=== PATIENT | male | born 1985 | race Caucasian/White ===

== ENCOUNTER 2016-05-27 17:46 | Emergency (ER) | payer OTHER ==
[2016-05-27] MEDS ORDERED: Bupivacaine 0.5% 10 ML VIAL ONE (17:56)
[2016-05-27] MEDS ORDERED: Adacel (T-DAP) 0.5 ML VIAL ONE (18:01)
[2016-05-27] MEDS ORDERED: Triple Antibiotic Oint 1 GM Packet ONE (18:52)
[2016-05-27] MEDS ORDERED: Cephalexin 250 MG CAP ONE (19:15)
--- NOTE | 2016-05-27 19:29 | ERRECORD ---
[facility] EMERGENCY RECORD PAST MEDICAL HISTORY (17:59 KMOR) MEDICAL HISTORY: No past medical history, Tetanus not up to date, No past medical history of hypertension. MALE SURGICAL HISTORY: Patient has no surgical history. PSYCHIATRIC HISTORY: No previous psychiatric history. SOCIAL HISTORY: Patient denies alcohol use, Patient denies drug use, Patient has no smoking history. KNOWN ALLERGIES No Known Drug Allergies CURRENT MEDICATIONS (17:55 KMOR) None VITAL SIGNS VITAL SIGNS: BP: 120/84, Pulse: 84, Resp: 18, Temp: 98.3 (Oral), Pain: 10, O2 sat: 100 on Room Air, Time: 05/27/2016 17:58. (17:58 KMOR) BP: 103/63, Pulse: 78, Resp: 18, Temp: 98.3 (Oral), Pain: 2, O2 sat: 99 on Room Air, Time: 05/27/2016 18:47. (18:47 AHOO) MEDICATION ADMINISTRATION SUMMARY Drug Name: cephALEXin, Dose Ordered: 1000 mg, Route: Oral, Status: Given, Time: 19:16 05/27/2016, Drug Name: Adacel(Tdap Adolesn/Adult)(PF), Dose Ordered: 0.5 mL, Route: Intramuscular, Status: Given, Time: 18:07 05/27/2016, Drug Name: Marcaine, Dose Ordered: 5 mL, Route: Subcutaneous, Status: Given, Time: 18:00 05/27/2016, Detailed record available in Medication Service section. PROBLEM LIST No recorded problems DIAGNOSIS (19:18 JPIP) FINAL: PRIMARY: finger laceration, ADDITIONAL: finger contusions. PRESCRIPTION (19:13 JPIP) cephALEXin: CAPSULE (HARD, SOFT, ETC.) : 500 mg : ORAL : Quantity: 1 Unit: tab(s) Route: ORAL Schedule: 3 times a day (after meals) Dispense: 30 May substitute. Refills: No Refills . NOTES: No refills. Ultram: TABLET : 50 mg : ORAL : Quantity: 1-2 Unit: tab(s) Route: ORAL Schedule: every 8 hours PRN Dispense: 30 May substitute. Refills: No Refills . NOTES: for pain No refills. DISPOSITION &a-1R&a+25V*p+0X*o7364V*c202B*c15G*c2P*p-0X&a-25V&a+1R Name: Ab Campa : 1985 M30 MedRec: [id number] AcctNum: [id number] Prepared: ThuMay 27, 2016 19:26 by Interface Page 1 of 2 pMD [facility] EMERGENCY RECORD PATIENT: Disposition Type: Discharge, Disposition: *Discharge Home, Condition: Good. (19:18 JPIP) Patient left the department. (19:23 OO) Roach: AHOO=JOSEMANUEL Ferreira, July JPIP=DO Bowens Joseph KMOR=HAILEY Case, Emily &a-1R&a+25V*p+0X*m4063Q*c202B*c15G*c2P*p-0X&a-25V&a+1R Name: Ab Campa Malcolm : 1985 M30 MedRec: [id number] AcctNum: [id number] Prepared: ThuMay 27, 2016 19:26 by Interface Page 2 of 2 pMD MTDD
--- NOTE | 2016-05-27 19:39 | PICIS ---
[facility] EMERGENCY RECORD TRIAGE (17:54 KMOR) TRIAGE NOTES: Crushed 3rd digit with pipe at work at 1700. (17:54 KMOR) PATIENT: NAME: Ab Campa, AGE: 30, GENDER: male, : Thu1985, TIME OF GREET: ThuMay 27, 2016 17:46, PREFERRED LANGUAGE: Welsh, ETHNICITY: Not or , ECODE BILLING MAP: [facility], SSN: [id number], Zip Code: [address], KG WEIGHT: 68.04, PHONE: , , , PERSON ID: [id number], PCP: NONE. (17:54 KMOR) PAYMENT: [employer] Work[employer]. (18:04) COMPLAINT: finger injury. (17:54 KMOR) ADMISSION: URGENCY: 3 Urgent, ADMISSION SOURCE: Home, TRANSPORT: CAR, BED: ER -03. (17:54 KMOR) ASSESSMENT: Assessment: A&OX4. RR EVEN AND UNLABORED., Symptoms began 1 hour ago. (17:59 KMOR) PAIN: Patient complains of pain described as, aching, on a scale 0-10 patient rates pain as 10, Location RIGHT MIDDLE DIGIT. (17:59 KMOR) SIRS SCORING: Heart Rate 55-109 (0), Temp range 96.8-101.1 (0), respiratory rate 12-24 (0), Mental Status altered: no (0), Infection or Suspected Infection: No. (17:59 KMOR) TRIAGE SCREENING: Patient denies suicidal ideation, Patient denies presence of domestic violence. (17:59 KMOR) PROVIDERS: TRIAGE NURSE: Emily Case RN. (17:54 KMOR) VITAL SIGNS: BP 120/84, Pulse 84, Resp 18, Temp 98.3, (Oral), Pain 10, O2 Sat 100, on Room Air, Time 05/27/2016 17:58. (17:58 KMOR) KNOWN ALLERGIES No Known Drug Allergies CURRENT MEDICATIONS (17:55 KMOR) None VITAL SIGNS VITAL SIGNS: BP: 120/84, Pulse: 84, Resp: 18, Temp: 98.3 (Oral), Pain: 10, O2 sat: 100 on Room Air, Time: 05/27/2016 17:58. (17:58 KMOR) BP: 103/63, Pulse: 78, Resp: 18, Temp: 98.3 (Oral), Pain: 2, O2 sat: 99 on Room Air, Time: 05/27/2016 18:47. (18:47 AHOO) NURSING ASSESSMENT: SKIN (18:02 KMOR) CONSTITUTIONAL: Patient arrives ambulatory, Gait steady, History obtained from patient, Patient appears, uncomfortable, Patient cooperative, Patient alert, Oriented to person, place and time, Skin warm, Skin dry, Skin normal in color, Mucous membranes pink, Mucous membranes moist, Patient is well-groomed, Patient complains of Right hand injury, Right hand injury while at work, crush injury to right 3rd digit from pipe. PAIN: aching pain, right 3rd digit, on a scale 0-10 patient rates pain as 10. SKIN: Skin assessment findings include skin warm, Skin dry, Skin &a-1R&a+25V*p+0X*o3132Z*c202B*c15G*c2P*p-0X&a-25V&a+1R Name: Ab Campa : 1985 M30 MedRec: [id number] AcctNum: [id number] Prepared: ThuMay 27, 2016 19:34 by Interface Page 1 of 5 pMD [facility] EMERGENCY RECORD normal in color, Inspection findings include laceration, to plamer surfect of right 3rd digit, length (cm) 4, bleeding controlled. NOTES: Patient tolerated procedure well. NURSING PROCEDURE: DISCHARGE NOTE (19:18 AHOO) DISCHARGE: Patient discharged to home, ambulating without assistance, family driving, accompanied by //partner, Summary of Care printed/ provided, Transition record given to patient, Discharge instructions given to patient, Prescriptions given and instructions on side effects given, Above person(s) verbalized understanding of discharge instructions and follow-up care, Patient treated and evaluated by physician. NURSING PROCEDURE: TRANSPORT TO TESTS PATIENT IDENTIFIER: Patient actively involved in identification process, Patient's identity verified by patient stating name, Patient's identity verified by patient stating date, Patient's identity verified by hospital ID bracelet, Patient's identity verified by family member. (18:08 AHOO) TRANSPORT TO TESTS: Patient transported to x-ray, ambulatory, Accompanied by x-ray pathological technician. (18:08 AHOO) FOLLOW-UP: After procedure, patient returned to emergency department. (18:13 AHOO) NURSING PROCEDURE: WOUND CARE (18:20 AHOO) PATIENT IDENTIFIER: Patient actively involved in identification process, Patient's identity verified by patient stating name, Patient's identity verified by patient stating date, Patient's identity verified by hospital ID braneha, Patient's identity verified by family member. WOUND CARE: Wound care indicated for wound debridement and cleansing, Wound care indicated for preparing wound for repair, Wound care indicated to promote healing, Wound site: RIGHT HAND MIDDLE FINGER, Cause of wound: FINGER LACERATION, Wound irrigated with 250 mL of normal saline, by JULY HERLINDA BREAKFAST HOSTESS, Wound cleansed with Hibiclens, by JULY HERLINDA GONZALEZN, Wound repaired with sutures, by DR BOWENS, using 1 pack of suture. ORDER DETAILS Order Name: CLEAN WOUND, Status: Done, Time: 18:09 05/27/2016, User: KYLEE, - Ordered for: DO Bowens Joseph, - Entered by: DO Bowens Joseph - ThuMay 27, 2016 18:02, - Quantity: 1, Order Name: PROCEDURE SET-UP, Status: Done, Time: 18:12 05/27/2016, User: KYLEE, - Ordered for: DO Bowens Joseph, - Entered by: DO Bowens Joseph - ThuMay 27, 2016 18:11, &a-1R&a+25V*p+0X*t5358J*c202B*c15G*c2P*p-0X&a-25V&a+1R Name: Ab Campa : 1985 M30 MedRec: [id number] AcctNum: [id number] Prepared: ThuMay 27, 2016 19:34 by Interface [address] [place] [address] EMERGENCY RECORD - Quantity: 1, Order Name: WOUND CARE ED, Status: Done, Time: 18:09 05/27/2016, User: KYLEE, - Ordered for: DO Bowens Joseph, - Entered by: DO Bowens Joseph - Tue May 27, 2016 18:02, - Quantity: 1, Order Name: XR Finger(s) Rt Min 2 View, Status: Active, Time: 18:02 05/27/2016, User: LANDRY, - Ordered for: DO Bowens Joseph, - Entered by: DO Bowens Joseph - Tue May 27, 2016 18:02, - Quantity: 1. MEDICATION ADMINISTRATION SUMMARY Drug Name: cephALEXin, Dose Ordered: 1000 mg, Route: Oral, Status: Given, Time: 19:16 05/27/2016, Drug Name: Adacel(Tdap Adolesn/Adult)(PF), Dose Ordered: 0.5 mL, Route: Intramuscular, Status: Given, Time: 18:07 05/27/2016, Drug Name: Marcaine, Dose Ordered: 5 mL, Route: Subcutaneous, Status: Given, Time: 18:00 05/27/2016, Detailed record available in Medication Service section. MEDICATION SERVICE Adacel(Tdap Adolesn/Adult)(PF): Order: Adacel(Tdap Adolesn/Adult)(PF) (diphth,pertuss(acell),tet vac/preservative free) - Dose: 0.5 mL : Intramuscular Schedule: Now Ordered by: Duane Bowens DO Entered by: Duane Bowens DO ThuMay 27, 2016 17:57 , Acknowledged by: Kianna Ferreira LVN milo May 27, 2016 17:59, Acknowledged by: Kianna Ferreira LVN milo May 27, 2016 17:59 Documented as given by: JOSEMANUEL Helton May 27, 2016 18:07 Patient, Medication, Dose, Route and Time verified prior to administration. IM immunization, Amount given: 0.5ml, Medication administered to left deltoid, Vaccination information sheet given to patient, name of publication: [facility], lot number: [id number], expiration: 07/04/2018, Correct patient, time, route, dose and medication confirmed prior to administration, Patient advised of actions and side-effects prior to administration, Allergies confirmed and medications reviewed prior to administration, Patient in position of comfort, Side rails up, Cart in lowest position, Family at bedside. cephALEXin: Order: cephALEXin (cephalexin monohydrate) - Dose: 1000 mg : Oral Schedule: Now Ordered by: Duane Bowens DO Entered by: Duane Bowens DO ThuMay 27, 2016 19:13 , Acknowledged by: Kianna Ferreira LVN milo May 27, 2016 19:14 Documented as given by: Kianna Ferreira LVN ThuMay 27, 2016 19:16 Patient, Medication, Dose, Route and Time verified prior to &a-1R&a+25V*p+0X*j0438K*c202B*c15G*c2P*p-0X&a-25V&a+1R Name: Ab Campa : 1985 M30 MedRec: [id number] AcctNum: [id number] Prepared: ThuMay 27, 2016 19:34 by Interface Page 3 of 5 pMD [facility] EMERGENCY RECORD administration. Amount given: 1000mg, Correct patient, time, route, dose and medication confirmed prior to administration, Patient advised of actions and side-effects prior to administration, Allergies confirmed and medications reviewed prior to administration, Patient in position of comfort, Side rails up, Cart in lowest position, Family at bedside. Marcaine: Order: Marcaine (bupivacaine HCl) - Dose: 5 mL : Subcutaneous Schedule: Now Ordered by: Duane Bowens DO Entered by: Duane Bowens DO ThuMay 27, 2016 17:58 , Acknowledged by: Kianna Ferreira LVN ThuMay 27, 2016 17:59 Documented as given by: Kianna Ferreira LVN ThuMay 27, 2016 18:00 Patient, Medication, Dose, Route and Time verified prior to administration. Administered by admin by Dr Bowens. PAST MEDICAL HISTORY (17:59 KMOR) MEDICAL HISTORY: No past medical history, Tetanus not up to date, No past medical history of hypertension. MALE SURGICAL HISTORY: Patient has no surgical history. PSYCHIATRIC HISTORY: No previous psychiatric history. SOCIAL HISTORY: Patient denies alcohol use, Patient denies drug use, Patient has no smoking history. EVENTS TRANSFER: Triage to Emergency Emergency Room -03. (ThuMay 27, 2016 17:54 KMOR) Removed from Emergency Emergency Room -03. (19:23 AHOO) O2SAT INTERPRETATION (18:03 JP) O2SAT: Single pulse oximetry, Oxygen saturation 100%, on room air, Oxygen saturation interpretation: Normal, No intervention required. PROBLEM LIST No recorded problems DIAGNOSIS (19:18 JPIP) FINAL: PRIMARY: finger laceration, ADDITIONAL: finger contusions. DISPOSITION PATIENT: Disposition Type: Discharge, Disposition: *Discharge Home, Condition: Good. (19:18 JPIP) Patient left the department. (19:23 AHOO) INSTRUCTION (19:14 JPIP) DISCHARGE: FINGER LACERATION, FINGER CONTUSION. &a-1R&a+25V*p+0X*o3144O*c202B*c15G*c2P*p-0X&a-25V&a+1R Name: Ab Campa : 1985 M30 MedRec: [id number] AcctNum: [id number] Prepared: ThuMay 27, 2016 19:34 by Interface Page 4 of 5 pMD [facility] EMERGENCY RECORD SPECIAL: suture removal in 10 days Finish all your antibiotics Follow up with Primary Care Physician within 72 hours Return to the Emergency Department for increased symptoms problems or concerns Take acetaminophen or ibuprofen for pain. PRESCRIPTION (19:13 JPIP) cephALEXin: CAPSULE (HARD, SOFT, ETC.) : 500 mg : ORAL : Quantity: 1 Unit: tab(s) Route: ORAL Schedule: 3 times a day (after meals) Dispense: 30 May substitute. Refills: No Refills . NOTES: No refills. Ultram: TABLET : 50 mg : ORAL : Quantity: 1-2 Unit: tab(s) Route: ORAL Schedule: every 8 hours PRN Dispense: 30 May substitute. Refills: No Refills . NOTES: for pain No refills. IMAGING TETANUS CONSENT: Image captured from scanner. (18:06 OO) *DISCHARGE INSTRUCTIONS RECEIPT: Image captured from scanner. (19:21 OO) *SUPPLY CHARGE SHEET: Image captured from scanner. (19:21 OO) Roach: AHOO=JOSEMANUEL Ferreira, July JPIP=DO Bowens Joseph KMOR=HAILEY Case, Emily &a-1R&a+25V*p+0X*s9296L*c202B*c15G*c2P*p-0X&a-25V&a+1R Name: Ab Campa : 1985 M30 MedRec: [id number] AcctNum: [id number] Prepared: Linus May 27, 2016 19:34 by Interface Page 5 of 5 pMD MTDD
--- NOTE | 2016-05-27 21:00 | RAD ---
RIGHT FINGERS 05/27/16 This study mainly covered the right second through fourth digits. There is a nondisplaced fracture through the terminal tuft of the distal phalanx of the ring finger. The other fingers, including the third digit, appear intact. IMPRESSION: Nondisplaced fracture of the distal phalanx of the fourth finger. POS: HOME
== END 2016-05-27 19:18 | disposition home or self-care (01) ==
LOC: BURERS 17:46
DX: S61.212A Laceration without foreign body of right middle finger without damage to nail, initial encounter (principal); W20.8XXA Other cause of strike by thrown, projected or falling object, initial encounter
CPT/HCPCS: 12001; 90471; 90715; J3490